=== PATIENT | male | born 1985 | race African-American/Black ===

== ENCOUNTER 2023-01-13 08:06 | Emergency (ER) | payer MEDICAID ==
[~2023-01-13] VITALS: Ht 188 cm; Wt 84.8 kg
[2023-01-13 08:10] VITALS: BP 152/95; PULSE 111; TEMP 98.6; O2SAT 98
[2023-01-13] MEDS ORDERED: sulfamethoxazole/trimethoprim DS (800/160mg) tablet PO ONE (08:40)
[2023-01-13] MEDS ORDERED: ibuprofen tablet 400 MG TABLET PO ONE (08:40)
[2023-01-13] MEDS ORDERED: cephalexin 250mg capsule PO ONE (08:40)
[2023-01-13] MEDS ORDERED: CEPH-585 PO (08:47)
[2023-01-13] MEDS ORDERED: SULF1TAB49 PO (08:47)
[2023-01-13 09:27] VITALS: RESP 18
== END 2023-01-13 09:28 | disposition home or self-care (01) ==
LOC: ER 08:07
DX: L03.116 Cellulitis of left lower limb (principal); Z56.0 Unemployment, unspecified; Z59.00 Homelessness unspecified; Z79.2 Long term (current) use of antibiotics; Z79.899 Other long term (current) drug therapy
CPT/HCPCS: 99284